=== PATIENT | female | born 1950 | race African-American/Black ===

== ENCOUNTER 2021-07-12 20:23 | Inpatient (IN) ==
[2021-07-12] MEDS ORDERED: PANTOPRAZOLE 40 MG VIAL IV STA (21:31)
[2021-07-12] MEDS ORDERED: MORPHINE 2 MG/1 ML SYRINGE IV STA (21:31)
[2021-07-12] MEDS ORDERED: SODIUM CHLORIDE 0.9% 1,000 ML IV STA ×2 (21:31→23:43)
[2021-07-12] MEDS ORDERED: ONDANSETRON 4 MG/2 ML VIAL IV STA (21:31)
[2021-07-12 22:05] LABS: Basophils # 0.1 10*3/uL (0.0-0.2); Basophils % 0.5 % (0.0-0.8); Eosinophils # 0.8 10*3/uL (0.0-0.87); Hematocrit 32.8 VOL% (35.7-47.0); Hemoglobin 11.3 GM/DL (12.0-16.0); Immature Granulocytes % 0.5 %; Immature Granulocytes Absolute 0.05 #; Lymphocytes # 1.3 10*3/uL (1.4-4.0); Lymphocytes % 13.8 % (21.3-54.2); Mean Corpuscular HGB Conc 34.5 GM/DL (32-36); Mean Corpuscular Volume 82.8 FL (87-102); Mean Platelet Volume 10.5 FL (9.6-12.0); Monocytes % 7.9 % (1.7-12.7); Neutrophils % 69.3 % (38.7-73.9); Platelet Count 373 T/CUMM (130-400); Red Blood Count 3.96 MC/CUMM (3.8-5.5); Red Cell Distribution Width 11.9 % (9.3-17.3); White Blood Count 9.7 T/CUMM (4-12)
[2021-07-12 22:21] LABS: Albumin 3.9 G/DL (3.4-5.0); Calcium 9.7 MG/DL (8.5-10.1); Osmolality,Calculated 241.6 MOS/KG (273-304); Potassium 5.2 MMOL/L (3.5-5.1); Total Protein 8.1 G/DL (6.4-8.2)
[2021-07-12 23:42] LABS: Bilirubin,Urine Negative (Negative); Blood, Urine Negative (Negative); Glucose,Urine (UA) Negative (Negative); Ketones,Urine 5 mg/dL (Negative); Nitrite,Urine Negative (Negative); Protein,Urine Negative; RBC,Urine 4 /HPF (0-4); Squamous Epithelial Cell,Urine Occasional /HPF (0-10); Urine Appearance CLEAR (Clear); Urine Color Amber (Yellow); Urine Specific Gravity 1.025 (1.001-1.035); Urine Urobilinogen < 2.0 EU/DL (0.2-1.0)
[2021-07-13] MEDS ORDERED: DEXTROSE 50% 25 GM/50 ML VIAL IV PRN (00:57)
[2021-07-13] MEDS ORDERED: GLUCAGON 1 MG VIAL IM PRN (00:57)
[2021-07-13] MEDS ORDERED: ENOXAPARIN 40 MG/0.4 ML SYRINGE SUBCUT SCH (01:00)
[2021-07-13] MEDS ORDERED: LORazepam 2 MG/1 ML VIAL IV STA (01:01)
[2021-07-13] MEDS ORDERED: LORazepam 2 MG/1 ML VIAL ONE (01:03)
[2021-07-13 02:18] LABS: Calcium 8.7 MG/DL (8.5-10.1); Osmolality,Calculated 246.2 MOS/KG (273-304); Potassium 4.4 MMOL/L (3.5-5.1)
[2021-07-13] MEDS: SODIUM CHLORIDE 0.9% 1,000 ML IV SCH ×2 (02:44→22:45)
[2021-07-13] MEDS ORDERED: INFLUENZA VIRUS VACCINE 0.5 ML SYRINGE IM ONE (03:03)
[2021-07-13] MEDS ORDERED: PNEUMOCOCCAL VACCINE (13 VALENT) 0.5 ML SYRINGE IM ONE (03:03)
[2021-07-13] MEDS ORDERED: CLORAZEPATE 3.75 MG TABLET PO PRN (03:38)
[2021-07-13] MEDS: HYDROmorphone 2 MG/1 ML VIAL IV PRN ×3 (05:27→20:19)
[2021-07-13 06:51] LABS: Basophils # 0.1 10*3/uL (0.0-0.2); Basophils % 0.6 % (0.0-0.8); Eosinophils # 0.8 10*3/uL (0.0-0.87); Hematocrit 29.6 VOL% (35.7-47.0); Hemoglobin 10.2 GM/DL (12.0-16.0); Immature Granulocytes % 0.3 %; Immature Granulocytes Absolute 0.03 #; Lymphocytes # 1.2 10*3/uL (1.4-4.0); Lymphocytes % 12.8 % (21.3-54.2); Mean Corpuscular HGB Conc 34.5 GM/DL (32-36); Mean Corpuscular Volume 84.8 FL (87-102); Mean Platelet Volume 10.7 FL (9.6-12.0); Monocytes % 9.3 % (1.7-12.7); Platelet Count 307 T/CUMM (130-400); Red Blood Count 3.49 MC/CUMM (3.8-5.5); White Blood Count 9.3 T/CUMM (4-12)
[2021-07-13 07:08] LABS: Albumin 3.2 G/DL (3.4-5.0); Bilirubin,Total 4.9 MG/DL (0.20-1.00); Calcium 8.9 MG/DL (8.5-10.1); Osmolality,Calculated 252.6 MOS/KG (273-304); Potassium 4.8 MMOL/L (3.5-5.1); Total Protein 6.8 G/DL (6.4-8.2)
[2021-07-13] MEDS: PANTOPRAZOLE 40 MG TABLET PO SCH (08:29)
[2021-07-13] MEDS: ONDANSETRON 4 MG/2 ML VIAL IV PRN (08:29)
[2021-07-13] MEDS ORDERED: PROMETHAZINE INJ 12.5 MG in SODIUM CHLORIDE 0.9% 50 ML IV PRN (10:38)
[2021-07-14] MEDS: HYDROmorphone 2 MG/1 ML VIAL IV PRN ×3 (03:12→18:50)
[2021-07-14] MEDS: SODIUM CHLORIDE 0.9% 1,000 ML IV SCH (04:48)
[2021-07-14 06:11] LABS: Basophils # 0.1 10*3/uL (0.0-0.2); Basophils % 0.5 % (0.0-0.8); Hematocrit 27.7 VOL% (35.7-47.0); Hemoglobin 9.3 GM/DL (12.0-16.0); Immature Granulocytes % 0.5 %; Immature Granulocytes Absolute 0.06 #; Lymphocytes # 1.4 10*3/uL (1.4-4.0); Lymphocytes % 12.2 % (21.3-54.2); Mean Corpuscular HGB Conc 33.6 GM/DL (32-36); Mean Corpuscular Volume 85.2 FL (87-102); Mean Platelet Volume 10.4 FL (9.6-12.0); Monocytes % 9.8 % (1.7-12.7); Platelet Count 279 T/CUMM (130-400); Red Blood Count 3.25 MC/CUMM (3.8-5.5); Red Cell Distribution Width 12.6 % (9.3-17.3); White Blood Count 11.5 T/CUMM (4-12)
[2021-07-14 06:29] LABS: Albumin 3.2 G/DL (3.4-5.0); Bilirubin,Total 4.1 MG/DL (0.20-1.00); Calcium 9.2 MG/DL (8.5-10.1); Osmolality,Calculated 257.1 MOS/KG (273-304); Potassium 4.8 MMOL/L (3.5-5.1); Total Protein 6.5 G/DL (6.4-8.2)
[2021-07-14] MEDS: PANTOPRAZOLE 40 MG TABLET PO SCH (10:15)
[2021-07-14] MEDS: ONDANSETRON 4 MG/2 ML VIAL IV PRN (10:15)
[2021-07-15] MEDS: SODIUM CHLORIDE 0.9% 1,000 ML IV SCH ×4 (00:49→20:08)
[2021-07-15] MEDS: HYDROmorphone 2 MG/1 ML VIAL IV PRN ×4 (02:14→20:17)
[2021-07-15 06:12] LABS: Basophils # 0.1 10*3/uL (0.0-0.2); Basophils % 0.6 % (0.0-0.8); Eosinophils # 0.9 10*3/uL (0.0-0.87); Eosinophils % 9.9 % (0.00-10.9); Hematocrit 27.5 VOL% (35.7-47.0); Immature Granulocytes % 0.4 %; Immature Granulocytes Absolute 0.04 #; Lymphocytes # 1.3 10*3/uL (1.4-4.0); Lymphocytes % 13.3 % (21.3-54.2); Mean Corpuscular HGB Conc 32.7 GM/DL (32-36); Mean Platelet Volume 10.5 FL (9.6-12.0); Monocytes % 8.6 % (1.7-12.7); Neutrophils % 67.2 % (38.7-73.9); Platelet Count 225 T/CUMM (130-400); Red Blood Count 3.16 MC/CUMM (3.8-5.5); White Blood Count 9.4 T/CUMM (4-12)
[2021-07-15 06:39] LABS: Bilirubin,Total 3.9 MG/DL (0.20-1.00); Calcium 9.1 MG/DL (8.5-10.1); Osmolality,Calculated 263.5 MOS/KG (273-304); Potassium 4.6 MMOL/L (3.5-5.1); Total Protein 6.4 G/DL (6.4-8.2)
[2021-07-15 08:04] LABS: INR 1.4; PT Patient Result 15.5 SECS (10.5-12.0)
[2021-07-15] MEDS: PANTOPRAZOLE 40 MG TABLET PO SCH (09:12)
[2021-07-15] MEDS ORDERED: DIAZEPAM 5 MG TABLET PO ONE (13:01)
[2021-07-15] MEDS: SODIUM CHLORIDE 0.45% 1,000 ML IV SCH (13:13)
[2021-07-16] MEDS: HYDROmorphone 2 MG/1 ML VIAL IV PRN ×5 (00:53→22:32)
[2021-07-16 05:23] LABS: Basophils # 0.1 10*3/uL (0.0-0.2); Basophils % 0.4 % (0.0-0.8); Eosinophils % 8.8 % (0.00-10.9); Hematocrit 27.1 VOL% (35.7-47.0); Immature Granulocytes % 0.6 %; Immature Granulocytes Absolute 0.07 #; Lymphocytes % 17.4 % (21.3-54.2); Mean Corpuscular HGB Conc 33.2 GM/DL (32-36); Mean Corpuscular Volume 86.6 FL (87-102); Mean Platelet Volume 10.2 FL (9.6-12.0); Monocytes % 8.1 % (1.7-12.7); Neutrophils % 64.7 % (38.7-73.9); Platelet Count 197 T/CUMM (130-400); Red Blood Count 3.13 MC/CUMM (3.8-5.5); White Blood Count 11.5 T/CUMM (4-12)
[2021-07-16 05:55] LABS: Albumin 2.9 G/DL (3.4-5.0); Bilirubin,Total 5.7 MG/DL (0.20-1.00); Osmolality,Calculated 264.4 MOS/KG (273-304); Potassium 4.5 MMOL/L (3.5-5.1); Total Protein 6.3 G/DL (6.4-8.2)
[2021-07-16] MEDS: PANTOPRAZOLE 40 MG TABLET PO SCH (08:47)
[2021-07-16] MEDS: SODIUM CHLORIDE 0.9% 1,000 ML IV SCH ×2 (10:50→22:31)
[2021-07-16] MEDS: SODIUM CHLORIDE 0.45% 1,000 ML IV SCH (16:30)
[2021-07-17] MEDS: ONDANSETRON 4 MG/2 ML VIAL IV PRN ×2 (05:26→22:03)
[2021-07-17] MEDS: HYDROmorphone 2 MG/1 ML VIAL IV PRN ×4 (05:28→22:03)
[2021-07-17 06:24] LABS: Basophils # 0.1 10*3/uL (0.0-0.2); Basophils % 0.4 % (0.0-0.8); Eosinophils # 0.9 10*3/uL (0.0-0.87); Eosinophils % 7.6 % (0.00-10.9); Hematocrit 27.8 VOL% (35.7-47.0); Hemoglobin 9.3 GM/DL (12.0-16.0); Immature Granulocytes % 0.7 %; Immature Granulocytes Absolute 0.08 #; Lymphocytes # 1.5 10*3/uL (1.4-4.0); Lymphocytes % 13.1 % (21.3-54.2); Mean Corpuscular HGB Conc 33.5 GM/DL (32-36); Mean Corpuscular Volume 87.1 FL (87-102); Mean Platelet Volume 10.6 FL (9.6-12.0); Monocytes % 8.7 % (1.7-12.7); Neutrophils % 69.5 % (38.7-73.9); Platelet Count 179 T/CUMM (130-400); Red Blood Count 3.19 MC/CUMM (3.8-5.5); Red Cell Distribution Width 12.9 % (9.3-17.3); White Blood Count 11.4 T/CUMM (4-12)
[2021-07-17 06:37] LABS: Albumin 2.9 G/DL (3.4-5.0); Bilirubin,Total 7.4 MG/DL (0.20-1.00); Calcium 8.7 MG/DL (8.5-10.1); Osmolality,Calculated 260.7 MOS/KG (273-304); Potassium 4.1 MMOL/L (3.5-5.1); Total Protein 6.2 G/DL (6.4-8.2)
[2021-07-17] MEDS ORDERED: MAGNESIUM SULF RIDER 2 GM/50 ML PREMIX IV PRN (08:06)
[2021-07-17] MEDS ORDERED: MAGNESIUM SULF RIDER 4 GM/100 ML PREMIX IV PRN (08:06)
[2021-07-17] MEDS: PANTOPRAZOLE 40 MG TABLET PO SCH (10:11)
[2021-07-17] MEDS: SODIUM CHLORIDE 0.45% 1,000 ML IV SCH (22:03)
[2021-07-17] MEDS: SODIUM CHLORIDE 0.9% 1,000 ML IV SCH (22:20)
[2021-07-18] MEDS: ONDANSETRON 4 MG/2 ML VIAL IV PRN ×2 (04:06→21:40)
[2021-07-18] MEDS: HYDROmorphone 2 MG/1 ML VIAL IV PRN ×4 (04:07→21:40)
[2021-07-18] MEDS: SODIUM CHLORIDE 0.9% 1,000 ML IV SCH ×2 (06:58→21:53)
[2021-07-18 07:14] LABS: Basophils # 0.1 10*3/uL (0.0-0.2); Basophils % 0.5 % (0.0-0.8); Eosinophils # 0.8 10*3/uL (0.0-0.87); Eosinophils % 7.3 % (0.00-10.9); Hematocrit 27.4 VOL% (35.7-47.0); Hemoglobin 9.1 GM/DL (12.0-16.0); Immature Granulocytes % 0.8 %; Immature Granulocytes Absolute 0.09 #; Lymphocytes # 1.5 10*3/uL (1.4-4.0); Mean Corpuscular HGB Conc 33.2 GM/DL (32-36); Mean Platelet Volume 10.5 FL (9.6-12.0); Monocytes % 10.3 % (1.7-12.7); Neutrophils % 68.1 % (38.7-73.9); Platelet Count 181 T/CUMM (130-400); Red Blood Count 3.15 MC/CUMM (3.8-5.5); Red Cell Distribution Width 13.2 % (9.3-17.3); White Blood Count 11.5 T/CUMM (4-12)
[2021-07-18 07:41] LABS: Albumin 2.8 G/DL (3.4-5.0); Bilirubin,Total 7.5 MG/DL (0.20-1.00); Calcium 8.9 MG/DL (8.5-10.1); Osmolality,Calculated 264.5 MOS/KG (273-304); Potassium 4.3 MMOL/L (3.5-5.1); Total Protein 6.3 G/DL (6.4-8.2)
[2021-07-18] MEDS: PANTOPRAZOLE 40 MG TABLET PO SCH (09:56)
[2021-07-18 16:31] LABS: Calcium 9.2 MG/DL (8.5-10.1); Osmolality,Calculated 268.4 MOS/KG (273-304); Potassium 4.4 MMOL/L (3.5-5.1)
[2021-07-18] MEDS: SODIUM CHLORIDE 0.45% 1,000 ML IV SCH (19:16)
[2021-07-19] MEDS: ONDANSETRON 4 MG/2 ML VIAL IV PRN ×2 (04:59→12:01)
[2021-07-19] MEDS: HYDROmorphone 2 MG/1 ML VIAL IV PRN ×2 (05:00→12:05)
[2021-07-19] MEDS: SODIUM CHLORIDE 0.9% 1,000 ML IV SCH (05:02)
[2021-07-19 05:29] LABS: Basophils # 0.1 10*3/uL (0.0-0.2); Basophils % 0.6 % (0.0-0.8); Eosinophils # 0.8 10*3/uL (0.0-0.87); Eosinophils % 6.4 % (0.00-10.9); Hematocrit 29.3 VOL% (35.7-47.0); Hemoglobin 9.7 GM/DL (12.0-16.0); Immature Granulocytes % 0.7 %; Immature Granulocytes Absolute 0.08 #; Lymphocytes # 1.9 10*3/uL (1.4-4.0); Lymphocytes % 16.4 % (21.3-54.2); Mean Corpuscular HGB Conc 33.1 GM/DL (32-36); Mean Corpuscular Volume 87.5 FL (87-102); Mean Platelet Volume 11.5 FL (9.6-12.0); Monocytes % 9.9 % (1.7-12.7); Platelet Count 192 T/CUMM (130-400); Red Blood Count 3.35 MC/CUMM (3.8-5.5); Red Cell Distribution Width 13.2 % (9.3-17.3); White Blood Count 11.7 T/CUMM (4-12)
[2021-07-19 05:46] LABS: Albumin 2.7 G/DL (3.4-5.0); Bilirubin,Total 7.5 MG/DL (0.20-1.00); Calcium 9.3 MG/DL (8.5-10.1); Osmolality,Calculated 269.2 MOS/KG (273-304); Potassium 4.3 MMOL/L (3.5-5.1); Total Protein 6.3 G/DL (6.4-8.2)
[2021-07-19] MEDS ORDERED: ceFAZolin 1,000 MG VIAL IV ONE (06:00)
[2021-07-19 06:12] LABS: Hypochromasia 1+; Platelet Estimate Adequate
[2021-07-19 06:13] LABS: Atypical Lymphocytes Few
[2021-07-19] MEDS ORDERED: propofoL 200 MG/20 ML VIAL IV ONE (08:25)
[2021-07-19] MEDS ORDERED: fentaNYL 100 MCG/2 ML VIAL ONE (08:25)
[2021-07-19] MEDS ORDERED: LIDOCAINE 2% 5 ML VIAL ONE (08:25)
[2021-07-19] MEDS ORDERED: SODIUM CHLORIDE 0.9% 100 ML IV ONE (08:25)
[2021-07-19] MEDS ORDERED: ETOMIDATE 40 MG/20 ML VIAL IV ONE (08:25)
[2021-07-19] MEDS ORDERED: MIDAZOLAM 2 MG/2 ML VIAL ONE (08:25)
[2021-07-19] MEDS ORDERED: LIDOCAINE 1%/EPI INJ 20 ML VIAL ONE (08:55)
[2021-07-19] MEDS ORDERED: BUPIVACAINE MPF 0.25% 30 ML VIAL ONE (08:55)
[2021-07-19] MEDS ORDERED: HEPARIN 5,000 UNIT/1 ML VIAL ONE (08:55)
[2021-07-19] MEDS ORDERED: TISSUE ADHESIVE 1 EACH APPLICATOR TOP ONE (08:55)
[2021-07-19] MEDS ORDERED: ONDANSETRON 4 MG/2 ML VIAL ONE (09:19)
[2021-07-19] MEDS ORDERED: HEPARIN LOCK FLUSH 500 UNIT/5 ML SYRINGE IV ONE (11:31)
[2021-07-19] MEDS: PANTOPRAZOLE 40 MG TABLET PO SCH (12:09)
[2021-07-19 20:00] VITALS: BP 159/76
== END 2021-07-19 16:55 | disposition home or self-care (01) | DRG 424 ==
LOC: N.ED 20:23 → SUATTDRO 07-13 00:57 → N.EDINP 07-13 00:57 → N.4E 07-13 03:11
PROVIDERS: ADMIT Internal Medicine; ATTEND Emergency Medicine